=== PATIENT | male | born 1970 | race Caucasian/White ===

== ENCOUNTER 2018-08-15 10:35 | Emergency (ER) | payer MEDICAID, OTHER ==
[~2018-08-15] VITALS: Ht 177.8 cm; Wt 142.0 kg
[2018-08-15 11:09] VITALS: BP 139/102
[2018-08-15] MEDS ORDERED: SODIUM CHLORIDE 0.9% 1,000ML IVBOLUS ONE (11:30)
[2018-08-15 11:33] LABS: MICROSCOPIC NOT IND
[2018-08-15 11:41] LABS: CULTURE INDICATED? NO
[2018-08-15 12:08] LABS: ANION GAP 9 mmol/L (5-15); CALCIUM 8.5 mg/dL (8.5-10.1); CHLORIDE 98 mmol/L (98-107); CREATININE 0.85 mg/dL (0.7-1.3)
== END 2018-08-15 12:41 | disposition home or self-care (01) ==
LOC: ED 12:35
DX: E11.65 Type 2 diabetes mellitus with hyperglycemia (principal); I10 Essential (primary) hypertension
CPT/HCPCS: 36415; 80048; 81003; 82040; 82962; 96360; 99283; J7030